=== PATIENT | female | born 1960 | race Caucasian/White ===

== ENCOUNTER 2019-10-02 05:10 | Day surgery (SDC) ==
[2019-10-02] MEDS ORDERED: KEFZOL 1 GM/D5W 1 GM/50 ML IVPB ONE (05:39)
[2019-10-02] MEDS ORDERED: LR 1,000 ML ONE ×2 (05:39→09:05)
[2019-10-02] MEDS ORDERED: QUELICIN (DOSE) ONE ×2 (06:14→06:27)
[2019-10-02] MEDS ORDERED: XYLOCAINE-MPF 2% ONE (06:14)
[2019-10-02] MEDS ORDERED: DIPRIVAN 1% ONE (06:15)
[2019-10-02] MEDS ORDERED: FENTANYL ONE (06:17)
[2019-10-02] MEDS ORDERED: NORCURON ONE (06:27)
[2019-10-02] MEDS ORDERED: SODIUM CHLORIDE 0.9% 10 ML ONE (06:27)
[2019-10-02] MEDS ORDERED: XYLOCAINE 1%/EPI 1:100,000 ONE (06:48)
[2019-10-02] MEDS ORDERED: VERSED ONE (06:49)
[2019-10-02] MEDS ORDERED: NARCAN ONE (08:32)
[2019-10-02] MEDS ORDERED: PHENERGAN IV PRN (09:03)
[2019-10-02] MEDS ORDERED: SODIUM CHLORIDE 0.9% INJ PRN (09:15)
--- NOTE | 2019-10-02 09:44 | OPERATIVE NOTE ---
PROCEDURE DATE: 10/02/2019 PREOPERATIVE DIAGNOSIS: Multinodular thyroid goiter. POSTOPERATIVE DIAGNOSIS: Multinodular thyroid goiter. PRINCIPAL PROCEDURE: Total thyroidectomy. SURGEON: Moni Day MD. VENEER JOINTER OPERATOR: Dr. Vamsi Julian. ANESTHESIA: General, in addition to local anesthetic. ESTIMATED BLOOD LOSS: 25 mL. DRAINS: TLS drain, neck. INDICATIONS: Ms. Estefania Blackwell is a 59-year-old, white female who has had a multinodular thyroid goiter. She has a large, dominant nodule in the right thyroid lobe which is partially cystic and partially solid. It did have some calcification within it by ultrasound. We have done a fine needle aspiration on it and it showed benign cells but over the last year, she has felt it has grown in size. It is noticeable on exam and excision was recommended. We do know that she had some nodules involving the left thyroid lobe also that were smaller. FINDINGS: She had a large right thyroid lobe nodule that was part cystic and solid. There was inflammatory reaction around it. It seemed to be well-circumscribed. It made the entire right thyroid lobe enlarged. The left thyroid lobe was not enlarged but it was nodular with smaller nodules and we decided to remove it also. We clearly saw the left recurrent laryngeal nerve. The right recurrent laryngeal nerve was not clearly seen but we felt we stayed anterior to it throughout our dissection. We stayed right on the thyroid gland during our dissection and we felt we preserved parathyroid tissue. DESCRIPTION OF PROCEDURE: Dr. Julian was present throughout this case. His presence was necessary for retraction and also help with dissection on both thyroid lobes. The patient was brought to the operating room, placed supine, received general anesthesia, and was intubated. A roll was placed behind her shoulders to extend her neck. She was then placed in the reverse Trendelenburg. She received Ancef prophylactically. Her anterior neck, shoulders, and anterior chest were all prepped and draped within the sterile field. I made an 8 cm, curvilinear incision using one of her skin lines after local anesthetic was placed, anterior neck, centered at the midline. This was made with a 15 blade scalpel. It was carried down through the subcutaneous tissue and platysma muscle. I created my subplatysmal planes both superiorly and inferiorly, mostly with blunt finger dissection and the cautery. We then established the midline between the strap muscles, initially inferior to the gland and then across the middle of the gland using cautery. We dissected the strap muscles off the right thyroid lobe initially. There was inflammatory reaction and even a rind involving this right thyroid lobe nodule. We identified the superior thyroid vessels and they were taken down using the LigaSure. That allowed us to mobilize this right thyroid lobe up into our wound superiorly and medially. We took time using a cotton pusher, right angle, and the LigaSure to dissect the posteromedial aspect of the thyroid gland off of the soft tissue. We stayed right on the thyroid gland and felt we preserved parathyroid tissue. We took the inferior thyroid vessels and middle thyroid vessels, and then carefully removed the thyroid from the trachea. We stayed right on the thyroid gland superiorly along the cricothyroid muscle. We did not identify the recurrent laryngeal nerve at this area but we felt we had stayed anterior to it. We came across the isthmus and removed this part of the thyroid gland, which was the right lobe. We then dissected the strap muscles off the left thyroid lobe. The left thyroid lobe was of normal size but it was nodular and firm. We felt it was abnormal and removed it also. Again, we took down the superior pole vessels using the LigaSure. This allowed us again to retract this lobe medially and superiorly. We dissected the posterior aspect of the lobe, again very carefully with a cotton pusher, right angle, and the LigaSure. We identified the recurrent laryngeal nerve and stayed anterior to it, especially as it inserted itself into the cricothyroid muscle. Again, we felt we stayed right on the gland and preserved parathyroid tissue. We removed the thyroid off the trachea and sent it as a separate specimen, left thyroid lobe. Time was taken to irrigate out the wound. Any bleeding was controlled either with small clips or the cautery. I decided to leave a TLS drain. It was brought out through the lateral aspect of the wound on the right. It was secured to the skin with a 3-0 silk tie. I closed the strap muscles in the midline with interrupted 3-0 Vicryl stitches. I closed the platysma with 3-0 Vicryl stitches. I closed the skin with 4-0 Monocryl subcuticular stitch. Dressings were applied. She tolerated the procedure well with plans for her to go to the recovery room and be hospitalized overnight. I spoke with her after the procedure. cc: MD Pancho Hernandez MD
--- NOTE | 2019-10-02 09:45 | EKG Report ---
Test Performed on : 10/02/2019 09:17:26 AM Test Reason : ekg changes Blood Pressure : / mmHG Vent. Rate : 097 BPM Atrial Rate : 097 BPM P-R Int : 134 ms QRS Dur : 088 ms QT Int : 398 ms P-R-T Axes : 045 010 243 degrees QTc Int : 505 ms Normal sinus rhythm. ST & T wave abnormality, consider inferior ischemia ST & T wave abnormality, consider anterolateral ischemia Prolonged QT Abnormal ECG When compared with ECG of 28-SEP-2019 22:30, (Unconfirmed) Incomplete right bundle branch block is no longer present Confirmed by Sean ARRIOLA, Rebel [place] ([id number]) on 10/04/2019 7:28:58 AM
[2019-10-02] MEDS: NORCO-7.5 PO PRN ×2 (10:25→21:07)
[2019-10-02] MEDS: MOTRIN PO SCH ×2 (12:42→17:18)
[2019-10-02] MEDS: LR 1,000 ML IV SCH ×2 (12:42→20:14)
[2019-10-02] MEDS: PERIDEX MT SCH (20:14)
[2019-10-03] MEDS: LR 1,000 ML IV SCH (06:19)
--- NOTE | 2019-10-03 07:31 | DISCHARGE SUMMARY ---
ADMISSION DATE: 10/02/2019 DISCHARGE DATE: 10/03/2019 ADMITTING DIAGNOSIS: Multinodular thyroid goiter. DISCHARGE DIAGNOSIS: Multinodular thyroid goiter. PRINCIPAL PROCEDURE: Total thyroidectomy on 10/02/2019. DISCHARGE DISABILITY: Full. DISCHARGE DISPOSITION: She will return to our outpatient offices in 7 to 10 days. DISCHARGE DIET: Regular. DISCHARGE MEDICATIONS: She is to return to her home medication. I am also going to add p.o. thyroxine 100 mcg daily, and she is to take 2 Tums 3 times daily for the first week. HOSPITAL COURSE: Ms. Estefania Blackwell is a 59-year-old, white female, patient of Dr. Dev Solares, who has developed a large thyroid nodule, right lobe of thyroid, that was partially cystic and partially solid. Fine-needle aspiration of this nodule in the past has suggested benign cells, but it has grown over the last year, and it is noticeable on exam, and it is becoming symptomatic, and excision was recommended. She had a multinodular gland that included both lobes, and we decided to proceed with a total thyroidectomy at the time of surgery. We felt the surgery went well. We placed a drain within the wound at the end of the procedure. She went to the recovery room, and then to the [address] [place] [address] [address]. On postop day 1, she was anxious. She did not get Xanax postoperatively, but her wound was with minimal swelling. Her TLS drain was removed. Her voice appeared to be normal. A serum calcium was pending. It was felt safe to discharge her home under the care of her , on 2 Tums 3 times a day, and thyroxine 100 mcg daily, with followup in my outpatient offices in 7 to 10 days. I discussed wound care with her. She knows to contact me with any problems. cc: MD Pancho Hernandez MD
[2019-10-03 07:37] VITALS: BP 151/74
[2019-10-03] MEDS: PERIDEX MT SCH (08:01)
[2019-10-03] MEDS: MOTRIN PO SCH (08:01)
== END 2019-10-03 09:14 | disposition home or self-care (01) ==
LOC: OR 05:10 → 4N 05:10 → OR 10-03 09:14
PROVIDERS: ATTEND Surgery
PROC: GE.THYR (2019-10-02 06:54)